=== PATIENT | female | born 1995 | race African-American/Black ===

== ENCOUNTER 2021-08-03 10:40 | Emergency (ER) | payer OTHER ==
[2021-08-03 10:53] VITALS: BMI 59.0
[2021-08-03] MEDS ORDERED: SODIUM CHLORIDE 0.9% 500 ML INFUS.BAG IV ONE (12:32)
[2021-08-03 12:55] LABS: VENOUS BASE EXCESS -2.7 mmol/L (-2-2); VENOUS O2 SATURATION 98.4 % (70-80); VENOUS PCO2 30.6 mmHg (38-52); VENOUS PH 7.443 (7.310-7.410)
[2021-08-03 12:56] LABS: BASO % 0.5 % (0-2.0); EOS % 0.7 % (0-4.5); HEMATOCRIT 32.8 % (32.4-45.2); HEMOGLOBIN 10.9 GM/dL (10.7-15.3); LYMPH % 14.2 % (8-40); MCH 26.3 pg (25.7-33.7); MCHC 33.3 g/dl (32.0-36.0); MEAN CELL VOLUME 78.8 fl (80-96); MEAN PLT VOLUME 8.7 fl (7.5-11.1); MONO % 7.7 % (3.8-10.2); NEUT % 76.9 % (42.8-82.8); PLATELET COUNT 278 10^3/uL (134-434); RBC 4.16 M/mm3 (3.60-5.2); RDW 14.5 % (11.6-15.6); WHITE BLOOD COUNT 12.8 K/mm3 (4.0-10.0)
[2021-08-03 13:51] LABS: ALBUMIN 2.3 g/dl (3.4-5.0); BILIRUBIN,TOTAL 0.2 mg/dL (0.2-1); BLOOD UREA NITROGEN 4.9 mg/dL (7-18); CREATININE 0.5 mg/dL (0.55-1.3)
[2021-08-03 14:48] LABS: PH,URINE 5.5 (5.0-8.0); URINE APPEARANCE CLEAR; URINE BILIRUBIN NEGATIVE (NEGATIVE); URINE COLOR YELLOW; URINE GLUCOSE (UA) 3+ (NEGATIVE); URINE KETONE 1+ (NEGATIVE); URINE LEUK ESTERASE NEGATIVE (NEGATIVE); URINE NITRITE NEGATIVE (NEGATIVE); URINE PROTEIN NEGATIVE (NEGATIVE); URINE UROBILINOGEN 0.2 mg/dL (0.2-1.0)
[2021-08-03] MEDS ORDERED: glyBURIDE 5 MG TABLET PO ONE (16:27)
[2021-08-03 18:55] VITALS: BP 113/72; PULSE 118; TEMP 98.1
== END 2021-08-03 17:55 | disposition home or self-care (01) ==
LOC: JER 10:40
DX: O24.419 Gestational diabetes mellitus in pregnancy, unspecified control (principal); Z3A.33 33 weeks gestation of pregnancy
CPT/HCPCS: 36415; 80053; 81003; 82010; 82803; 82962; 83036; 84443; 85025; 87086; 93005; 93010; 99285-25; C9803; U0003; U0005

== ENCOUNTER 2021-09-05 07:30 | Inpatient (IN) | payer OTHER ==
[2021-09-05] MEDS ORDERED: CITRIC ACID/SODIUM CITRATE 30 ML UNIT-DOSE CUP PO ONE (08:18)
[2021-09-05] MEDS ORDERED: ELECTROLYTE-148 SOLN 500 ML IV ONE (08:18)
[2021-09-05] MEDS ORDERED: ELECTROLYTE-148 SOLN 1,000 ML IV SCH (08:30)
[2021-09-05 08:36] LABS: BASO % 0.2 % (0-2.0); EOS % 1.1 % (0-4.5); HEMATOCRIT 34.2 % (32.4-45.2); HEMOGLOBIN 11.4 GM/dL (10.7-15.3); LYMPH % 25.8 % (8-40); MCH 25.4 pg (25.7-33.7); MCHC 33.2 g/dl (32.0-36.0); MEAN CELL VOLUME 76.5 fl (80-96); MEAN PLT VOLUME 9.3 fl (7.5-11.1); MONO % 9.6 % (3.8-10.2); NEUT % 63.3 % (42.8-82.8); PLATELET COUNT 233 10^3/uL (134-434); RBC 4.47 M/mm3 (3.60-5.2); WHITE BLOOD COUNT 9.4 K/mm3 (4.0-10.0)
[2021-09-05 08:44] LABS: INR 0.92 (0.83-1.09); PROTHROMBIN TIME (PATIENT) 10.8 SEC (9.7-13.0)
[2021-09-05 08:47] LABS: ACTIVATED PTT 28.7 SECONDS (25.2-36.5)
[2021-09-05 08:54] VITALS: BMI 60.5
[2021-09-05 08:56] LABS: BLOOD UREA NITROGEN 7.3 mg/dL (7-18); CALCIUM 8.4 mg/dL (8.5-10.1)
[2021-09-05 09:00] LABS: CREATININE 0.7 mg/dL (0.55-1.3)
[2021-09-05] MEDS ORDERED: morphine SULFATE/PF 1 MG/2 ML (2cc Syringe - QUVA) ONE (10:18)
[2021-09-05] MEDS ORDERED: OXYTOCIN 10 UNITS/ML VIAL ONE (10:44)
[2021-09-05] MEDS ORDERED: ceFAZolin SODIUM 1 GM VIAL ONE (10:44)
[2021-09-05] MEDS ORDERED: ONDANSETRON 4 MG/2 ML VIAL ONE (10:44)
[2021-09-05] MEDS ORDERED: ONDANSETRON 4 MG/2 ML VIAL IVPUSH PRN (11:45)
[2021-09-05] MEDS ORDERED: LACTATED RINGERS SOLUTION 1,000 ML IV SCH (11:45)
[2021-09-05] MEDS ORDERED: ACETAMINOPHEN 1000 MG/100 ML BAG IVPB PRN ×2 (11:46→12:06)
[2021-09-05] MEDS ORDERED: SENNOSIDES/DOCUSATE COMBO (SENNA PLUS) TABLET (UD) PO PRN (12:06)
[2021-09-05] MEDS ORDERED: ONDANSETRON 4 MG/2 ML VIAL IVPB PRN (12:06)
[2021-09-05] MEDS ORDERED: IBUPROFEN 800 MG/8 ML IJ IVPB PRN (12:06)
[2021-09-05] MEDS ORDERED: OXYTOCIN 20 UNITS in 0.9% NS 20 UNIT/1,000 ML INFUS.BAG IV SCH (12:15)
[2021-09-05] MEDS ORDERED: OXYTOCIN 20 UNITS in 0.9% NS 20 UNIT/1,000 ML INFUS.BAG IV ONE (13:07)
[2021-09-05] MEDS ORDERED: IBUPROFEN 800 MG/8 ML IJ IVPB ONE (13:07)
[2021-09-06] MEDS: ALBUTEROL SO4 0.083% IH SOL 2.5 MG/3 ML VIAL.NEB. NEB PRN ×2 (00:06→18:00)
[2021-09-06] MEDS: SIMETHICONE 80 MG TAB.CHEW (FP) PO PRN ×3 (07:22→21:52)
[2021-09-06] MEDS: oxyCODONE HCL 5 MG TABLET PO PRN ×2 (07:22→14:25)
[2021-09-06] MEDS ORDERED: FLU VACC QS2021-22(6MOS UP)/PF 60 MCG/0.5 ML SYRINGE IM ONE (10:00)
[2021-09-06] MEDS: ENOXAPARIN NA (PORCINE) 40 MG/0.4 ML DISP.SYRIN SQ SCH (10:21)
[2021-09-06 10:37] LABS: BASO % 0.2 % (0-2.0); EOS % 0.1 % (0-4.5); HEMOGLOBIN 10.3 GM/dL (10.7-15.3); LYMPH % 12.7 % (8-40); MCH 24.8 pg (25.7-33.7); MCHC 32.1 g/dl (32.0-36.0); MEAN CELL VOLUME 77.2 fl (80-96); MEAN PLT VOLUME 9.9 fl (7.5-11.1); MONO % 8.4 % (3.8-10.2); NEUT % 78.6 % (42.8-82.8); PLATELET COUNT 216 10^3/uL (134-434); RBC 4.14 M/mm3 (3.60-5.2); RDW 14.9 % (11.6-15.6); WHITE BLOOD COUNT 12.3 K/mm3 (4.0-10.0)
[2021-09-06] MEDS ORDERED: BISACODYL 10 MG SUPP.RECT RC PRN (12:06)
[2021-09-06] MEDS: ACETAMINOPHEN 325 MG TABLET (FP) PO PRN ×2 (17:55→21:52)
[2021-09-07] MEDS: SIMETHICONE 80 MG TAB.CHEW (FP) PO PRN ×2 (01:32→12:56)
[2021-09-07] MEDS: IBUPROFEN 600 MG TABLET (FP) PO PRN ×4 (01:32→17:07)
[2021-09-07] MEDS: ACETAMINOPHEN 325 MG TABLET (FP) PO PRN (01:33)
[2021-09-07] MEDS: ENOXAPARIN NA (PORCINE) 40 MG/0.4 ML DISP.SYRIN SQ SCH (09:37)
[2021-09-07 11:28] VITALS: BP 128/84; PULSE 99; TEMP 98.3
[2021-09-07] MEDS ORDERED: CEPHALEXIN MONOHYDRATE 500 MG CAPSULE (UD) PO SCH (11:33)
[2021-09-07] MEDS: ALBUTEROL SO4 0.083% IH SOL 2.5 MG/3 ML VIAL.NEB. NEB PRN (18:19)
[2021-09-08 19:38] LABS: HIV INTERPRETATION NEGATIVE (NEGATIVE)
== END 2021-09-07 19:20 | disposition home or self-care (01) | DRG 540 ==
LOC: JLDR 07:30 → J3W 14:25
PROVIDERS: ADMIT Specialist; ATTEND Specialist
PROC: 10D00Z1 Extraction of Products of Conception, Low, Open Approach (ICD-10-PCS; principal; 2021-09-06)
DX: O36.63X0 Maternal care for excessive fetal growth, third trimester, not applicable or unspecified (principal); O99.214 Obesity complicating childbirth; E66.01 Morbid (severe) obesity due to excess calories; Z3A.37 37 weeks gestation of pregnancy; Z37.0 Single live birth
CPT/HCPCS: 36415; 80048; 85025; 85610; 85730; 86780; 86850; 86900; 86901; 87389; 88307-TC; 90686; 94640; C9803; G0008; J0131; U0003; U0005

== ENCOUNTER 2022-07-20 14:29 | Emergency (ER) | payer OTHER ==
[2022-07-20 15:01] VITALS: BP 113/65; PULSE 89; RESP 18; TEMP 98; BMI 56.7
[2022-07-20] MEDS ORDERED: predniSONE 20 MG TABLET (UD) PO ONE (15:30)
[2022-07-20] MEDS ORDERED: predniSONE 20 MG TABLET (UD) ONE (15:38)
== END 2022-07-20 16:11 | disposition home or self-care (01) ==
LOC: JER 14:29
DX: U07.1 COVID-19 (principal)
CPT/HCPCS: 0241U-QW; 99283-25

== ENCOUNTER 2022-09-24 12:45 | Inpatient (IN) | payer OTHER ==
[2022-09-24] MEDS ORDERED: SODIUM CHLORIDE 1,000 ML IV STA ×2 (13:47→16:49)
[2022-09-24] MEDS ORDERED: ACETAMINOPHEN 1000 MG/100 ML BAG IVPB ONE (13:47)
[2022-09-24] MEDS ORDERED: FAMOTIDINE 20 MG/50 ML IVPB 20 MG/50 ML MG IVPB ONE ×2 (13:47→13:56)
[2022-09-24] MEDS ORDERED: ONDANSETRON 4 MG/2 ML VIAL IVPUSH ONE (13:47)
[2022-09-24] MEDS ORDERED: ACETAMINOPHEN INJECTION 100 ML IVPB ONE (13:55)
[2022-09-24] MEDS ORDERED: ONDANSETRON 4 MG/2 ML VIAL ONE (13:55)
[2022-09-24 14:27] LABS: EPI CELLS 24 /uL (0-25.1); HCG,QUALITATIVE URINE Negative; HYALINE CASTS 0 /uL (0-3.1); PH,URINE 7.5 (5.0-8.0); URINE APPEARANCE CLEAR; URINE BACTERIA 174 /uL (0-1359); URINE BILIRUBIN NEGATIVE (NEGATIVE); URINE COLOR DK YELLOW; URINE GLUCOSE (UA) NEGATIVE (NEGATIVE); URINE KETONE NEGATIVE (NEGATIVE); URINE LEUK ESTERASE 1+ (NEGATIVE); URINE NITRITE NEGATIVE (NEGATIVE); URINE PROTEIN NEGATIVE (NEGATIVE); URINE RBC 15 /uL (0-23.9); URINE WBC 46 /uL (0-25.8)
[2022-09-24 14:55] LABS: HEMATOCRIT 39.9 % (32.4-45.2); HEMOGLOBIN 12.5 GM/dL (10.7-15.3); MCH 24.3 pg (25.7-33.7); MCHC 31.4 g/dl (32.0-36.0); MEAN CELL VOLUME 77.4 fl (80-96); MEAN PLT VOLUME 8.6 fl (7.5-11.1); PLATELET COUNT 420 10^3/uL (134-434); RBC 5.15 M/mm3 (3.60-5.2); RDW 16.7 % (11.6-15.6); WHITE BLOOD COUNT 21.7 K/mm3 (4.0-10.0)
[2022-09-24 15:14] LABS: ANISOCYTOSIS 2+; MACROCYTOSIS 0
[2022-09-24 15:31] LABS: CALCIUM 9.3 mg/dL (8.5-10.1)
[2022-09-24 15:32] LABS: ALBUMIN 3.9 g/dl (3.4-5.0); BLOOD UREA NITROGEN 7.7 mg/dL (7-18)
[2022-09-24 15:34] LABS: CREATININE 0.7 mg/dL (0.55-1.3)
[2022-09-24 15:36] LABS: TOT PROT 7.8 g/dl (6.4-8.2)
[2022-09-24 15:39] LABS: BILIRUBIN,TOTAL 0.8 mg/dL (0.2-1)
[2022-09-24] MEDS ORDERED: PIPERACILLIN/TAZOB 3.375 GM 3.375 GM in DEXTROSE 5%-WATER - 50 ML IVPB ONE (16:40)
[2022-09-24] MEDS ORDERED: morphine CARPU-JECT 4 MG/1 ML DISP.SYRIN IVPUSH ONE (16:49)
[2022-09-24] MEDS ORDERED: morphine SULFATE 4 MG/ML VIAL ONE (16:53)
[2022-09-24] MEDS ORDERED: PIPERACILLIN/TAZOB 3.375 GM 3.375 GM/50 ML BAG IVPB ONE (16:53)
[2022-09-24] MEDS ORDERED: ONDANSETRON 4 MG/2 ML VIAL IVPUSH PRN (20:58)
[2022-09-24 21:11] LABS: INR 1.23 (0.83-1.09); PROTHROMBIN TIME (PATIENT) 14.2 SEC (9.7-13.0)
[2022-09-24 21:14] LABS: ACTIVATED PTT 27.9 SECONDS (25.2-36.5)
[2022-09-24] MEDS: INSULIN SLIDING SCALE (NOVOLOG) 1 VIAL SQ SCH (22:29)
[2022-09-24] MEDS: LACTATED RINGERS SOLUTION 1,000 ML/1,000 ML INFUS.BAG IV SCH (23:19)
[2022-09-24] MEDS: morphine SULFATE 4 MG/ML VIAL IVPUSH PRN (23:21)
[2022-09-25 00:09] VITALS: BMI 55.4
[2022-09-25] MEDS: LACTATED RINGERS SOLUTION 1,000 ML/1,000 ML INFUS.BAG IV SCH ×3 (03:57→17:12)
[2022-09-25] MEDS: morphine SULFATE 4 MG/ML VIAL IVPUSH PRN ×3 (04:35→21:19)
[2022-09-25] MEDS: INSULIN SLIDING SCALE (NOVOLOG) 1 VIAL SQ SCH ×4 (06:04→23:19)
[2022-09-25] MEDS ORDERED: PIPERACILLIN/TAZOB 4.5 GM 4.5 GM in DEXTROSE 5%-WATER 100 ML IVPB ONE (06:13)
[2022-09-25] MEDS ORDERED: TRIMETHOBENZAMIDE HCL 200MG/2ML INJ IM PRN (06:21)
[2022-09-25] MEDS ORDERED: AZITHROMYCIN IVPB 500 MG in DEXTROSE 5%-WATER - 250 ML IVPB ONE (07:30)
[2022-09-25 08:47] LABS: BASO % 0.2 % (0-2.0); EOS % 0.5 % (0-4.5); HEMATOCRIT 33.6 % (32.4-45.2); HEMOGLOBIN 10.7 GM/dL (10.7-15.3); MCH 24.5 pg (25.7-33.7); MCHC 31.7 g/dl (32.0-36.0); MEAN CELL VOLUME 77.1 fl (80-96); MEAN PLT VOLUME 8.8 fl (7.5-11.1); MONO % 6.4 % (3.8-10.2); NEUT % 76.9 % (42.8-82.8); PLATELET COUNT 328 10^3/uL (134-434); RBC 4.35 M/mm3 (3.60-5.2); RDW 16.9 % (11.6-15.6); WHITE BLOOD COUNT 13.5 K/mm3 (4.0-10.0)
[2022-09-25] MEDS ORDERED: ONDANSETRON 4 MG/2 ML VIAL IVPUSH PRN (09:15)
[2022-09-25 09:21] LABS: BLOOD UREA NITROGEN 6.7 mg/dL (7-18); CALCIUM 8.5 mg/dL (8.5-10.1); MAGNESIUM 2.1 mg/dL (1.8-2.4)
[2022-09-25 09:25] LABS: CREATININE 0.6 mg/dL (0.55-1.3); PHOSPHOROUS 3.5 mg/dL (2.5-4.9)
[2022-09-25 09:27] LABS: BILIRUBIN,TOTAL 0.7 mg/dL (0.2-1)
[2022-09-25] MEDS ORDERED: FAMOTIDINE 20 MG/50 ML IVPB 20 MG/50 ML MG IVPB SCH (10:00)
[2022-09-25] MEDS ORDERED: ENOXAPARIN NA (PORCINE) 40 MG/0.4 ML DISP.SYRIN SQ SCH (10:00)
[2022-09-25] MEDS ORDERED: AZITHROMYCIN IVPB 500 MG in DEXTROSE 5%-WATER - 250 ML IVPB SCH (10:00)
[2022-09-25] MEDS ORDERED: PIPERACILLIN/TAZOB 4.5 GM 4.5 GM in DEXTROSE 5%-WATER 100 ML IVPB SCH (15:00)
[2022-09-25] MEDS: PIPERACILLIN/TAZOB 3.375 GM 3.375 GM in DEXTROSE 5%-WATER - 50 ML IVPB SCH (17:08)
[2022-09-25] MEDS ORDERED: DEXTROSE 5%-NORMAL SALINE 1,000 ML IV SCH (18:00)
[2022-09-25] MEDS ORDERED: MAG HYDROX/AL HYDROX/SIMETH 30 ML UNIT-DOSE CUP PO ONE (18:00)
[2022-09-26] MEDS: morphine SULFATE 4 MG/ML VIAL IVPUSH PRN (01:38)
[2022-09-26] MEDS: PIPERACILLIN/TAZOB 3.375 GM 3.375 GM in DEXTROSE 5%-WATER - 50 ML IVPB SCH ×3 (01:40→18:14)
[2022-09-26] MEDS: INSULIN SLIDING SCALE (NOVOLOG) 1 VIAL SQ SCH ×4 (07:29→22:29)
[2022-09-26] MEDS ORDERED: PROPOFOL 40 ML ONE (08:22)
[2022-09-26] MEDS ORDERED: MIDAZOLAM HCL 2 MG/2 ML SINGLE DOSE VIAL ONE (08:23)
[2022-09-26] MEDS ORDERED: SUCCINYLCHOLINE CHLORIDE 200 MG/10 ML SYRINGE ONE (08:23)
[2022-09-26] MEDS ORDERED: ROCURONIUM BROMIDE 50 MG/5 ML SYRINGE ONE ×2 (08:23→10:49)
[2022-09-26] MEDS ORDERED: PROPOFOL 20 ML ONE (08:38)
[2022-09-26 09:29] LABS: BASO % 0.4 % (0-2.0); EOS % 2.6 % (0-4.5); HEMATOCRIT 34.9 % (32.4-45.2); HEMOGLOBIN 10.9 GM/dL (10.7-15.3); LYMPH % 25.5 % (8-40); MCH 24.3 pg (25.7-33.7); MCHC 31.1 g/dl (32.0-36.0); MEAN CELL VOLUME 78.3 fl (80-96); MEAN PLT VOLUME 8.8 fl (7.5-11.1); MONO % 8.8 % (3.8-10.2); NEUT % 62.7 % (42.8-82.8); PLATELET COUNT 369 10^3/uL (134-434); RBC 4.46 M/mm3 (3.60-5.2); RDW 17.2 % (11.6-15.6); WHITE BLOOD COUNT 12.2 K/mm3 (4.0-10.0)
[2022-09-26] MEDS ORDERED: BUPIVACAINE HCL/PF 0.5% (5MG/ML) 10 ML VIAL ONE ×2 (09:30→10:29)
[2022-09-26 09:54] LABS: CALCIUM 8.8 mg/dL (8.5-10.1)
[2022-09-26 09:56] LABS: ALBUMIN 3.3 g/dl (3.4-5.0); BLOOD UREA NITROGEN 5.2 mg/dL (7-18); MAGNESIUM 2.3 mg/dL (1.8-2.4)
[2022-09-26 09:57] LABS: CREATININE 0.7 mg/dL (0.55-1.3)
[2022-09-26 09:59] LABS: BILIRUBIN,TOTAL 0.3 mg/dL (0.2-1); TOT PROT 6.8 g/dl (6.4-8.2)
[2022-09-26] MEDS ORDERED: AZITHROMYCIN IVPB 500 MG in DEXTROSE 5%-WATER - 250 ML IVPB SCH (10:00)
[2022-09-26] MEDS ORDERED: BUPIVACAINE LIPOSOME/PF (EXPAREL) 266 MG/20 ML VIAL ONE (10:29)
[2022-09-26] MEDS ORDERED: PIPERACILLIN/TAZOBACTAM 3.375 GM VIAL IVPB ONE ×2 (10:30)
[2022-09-26] MEDS ORDERED: DEXAMETHASONE SOD PHOSPHATE 4 MG/1 ML VIAL ONE (10:53)
[2022-09-26] MEDS ORDERED: ONDANSETRON 4 MG/2 ML VIAL ONE (10:53)
[2022-09-26] MEDS ORDERED: BUPIVACAINE HCL/PF 0.5% (5MG/ML) 10 ML VIAL NR ONE (10:54)
[2022-09-26] MEDS ORDERED: BUPIVACAINE LIPOSOME/PF (EXPAREL) 266 MG/20 ML VIAL NR ONE (10:54)
[2022-09-26] MEDS ORDERED: SUGAMMADEX SODIUM 200 MG/2 ML VIAL ONE (11:24)
[2022-09-26] MEDS ORDERED: ONDANSETRON 4 MG/2 ML VIAL IVPUSH PRN (12:13)
[2022-09-26] MEDS ORDERED: HYDROmorphone HCl 2 MG/ML VIAL IVPUSH PRN ×2 (12:14→17:42)
[2022-09-26] MEDS ORDERED: LACTATED RINGERS SOLUTION 1,000 ML IV SCH (12:15)
[2022-09-26] MEDS: ACETAMINOPHEN 1000 MG/100 ML BAG IVPB PRN ×2 (14:54→22:27)
[2022-09-26] MEDS ORDERED: PIPERACILLIN/TAZOB 4.5 GM 4.5 GM in DEXTROSE 5%-WATER 100 ML IVPB SCH (15:00)
[2022-09-26] MEDS ORDERED: ACETAMINOPHEN 1000 MG/100 ML BAG IVPB PRN (17:42)
[2022-09-26] MEDS: oxyCODONE HCL 5 MG TABLET PO PRN ×2 (18:42→23:05)
[2022-09-26] MEDS ORDERED: INSULIN (NOVOLOG) ASPART 100 UNITS/ML 10ML VIAL ONE (21:33)
[2022-09-26] MEDS: LACTATED RINGERS SOLUTION 1,000 ML IV SCH (22:28)
[2022-09-26] MEDS: DEXTROSE 5%-NORMAL SALINE 1,000 ML IV SCH (22:29)
[2022-09-27] MEDS: PIPERACILLIN/TAZOB 3.375 GM 3.375 GM in DEXTROSE 5%-WATER - 50 ML IVPB SCH ×2 (03:00→10:03)
[2022-09-27] MEDS: oxyCODONE HCL 5 MG TABLET PO PRN ×5 (03:01→22:11)
[2022-09-27] MEDS: INSULIN SLIDING SCALE (NOVOLOG) 1 VIAL SQ SCH ×4 (08:10→22:12)
[2022-09-27] MEDS: ENOXAPARIN NA (PORCINE) 40 MG/0.4 ML DISP.SYRIN SQ SCH (10:03)
[2022-09-27] MEDS: DEXTROSE 5%-NORMAL SALINE 1,000 ML IV SCH (16:00)
[2022-09-27] MEDS: ONDANSETRON 4 MG/2 ML VIAL IVPUSH PRN (22:11)
[2022-09-28] MEDS: LACTATED RINGERS SOLUTION 1,000 ML IV SCH (02:08)
[2022-09-28] MEDS: ONDANSETRON 4 MG/2 ML VIAL IVPUSH PRN (04:47)
[2022-09-28] MEDS: oxyCODONE HCL 5 MG TABLET PO PRN ×2 (04:47→08:14)
[2022-09-28] MEDS: INSULIN SLIDING SCALE (NOVOLOG) 1 VIAL SQ SCH ×2 (06:18→11:22)
[2022-09-28] MEDS: ENOXAPARIN NA (PORCINE) 40 MG/0.4 ML DISP.SYRIN SQ SCH (09:23)
[2022-09-28 09:24] LABS: BASO % 0.7 % (0-2.0); EOS % 1.6 % (0-4.5); HEMATOCRIT 33.5 % (32.4-45.2); HEMOGLOBIN 10.6 GM/dL (10.7-15.3); LYMPH % 37.2 % (8-40); MCH 24.6 pg (25.7-33.7); MCHC 31.6 g/dl (32.0-36.0); MEAN PLT VOLUME 7.9 fl (7.5-11.1); MONO % 7.5 % (3.8-10.2); PLATELET COUNT 400 10^3/uL (134-434); RDW 17.1 % (11.6-15.6); WHITE BLOOD COUNT 9.5 K/mm3 (4.0-10.0)
[2022-09-28 09:57] LABS: CALCIUM 8.9 mg/dL (8.5-10.1)
[2022-09-28 10:00] LABS: BLOOD UREA NITROGEN 8.2 mg/dL (7-18)
[2022-09-28 10:01] LABS: CREATININE 0.7 mg/dL (0.55-1.3)
[2022-09-28 10:30] VITALS: PULSE 72; RESP 20
[2022-09-28] MEDS ORDERED: ONDANSETRON 8 MG TABLET (FP) PO PRN (11:55)
[2022-09-28] MEDS ORDERED: ONDANSETRON 4 MG TABLET PO PRN (12:00)
[2022-09-28] MEDS ORDERED: PANTOPRAZOLE 40 MG TABLET PO SCH (12:00)
[2022-09-28] MEDS: DEXTROSE 5%-NORMAL SALINE 1,000 ML IV SCH (13:23)
[2022-09-28 15:27] VITALS: BP 117/65; TEMP 98.5
[2022-09-28] MEDS ORDERED: AMOX TR/POT CLAV 875MG/125MG TABLETS (FP) PO SCH (17:30)
== END 2022-09-28 15:55 | disposition home or self-care (01) | DRG 417 ==
LOC: JER 12:45 → JERBED 20:23 → J8W 21:56
PROVIDERS: ADMIT Internal Medicine; ATTEND Internal Medicine
PROC: 0FT44ZZ Resection of Gallbladder, Percutaneous Endoscopic Approach (ICD-10-PCS; principal; 2022-09-26 09:30)
DX: K80.00 Calculus of gallbladder with acute cholecystitis without obstruction (principal); K85.10 Biliary acute pancreatitis without necrosis or infection; Z68.43 Body mass index [BMI] 50.0-59.9, adult; J45.909 Unspecified asthma, uncomplicated; E66.01 Morbid (severe) obesity due to excess calories
CPT/HCPCS: 36415; 71046-TC-FY; 74177-TC; 76705-TC; 80048; 80053; 81003; 82962; 83036; 83615; 83690; 83735; 84100; 84478; 84703; 85025; 85610; 85730; 86140; 86850; 86900; 86901; 87086; 88304-TC; 93005; 93010; 94010; 94760; 99285-25; C9803-CS; Q9967; U0003; U0005

== ENCOUNTER 2022-10-25 14:09 | Emergency (ER) | payer OTHER ==
[2022-10-25 14:20] VITALS: BP 119/82; PULSE 87; RESP 18; TEMP 97.8; BMI 56.3
[2022-10-25 16:21] LABS: THROAT:GRP A STREP NOT DETECTED (NOTDETECTED)
== END 2022-10-25 16:50 | disposition home or self-care (01) ==
LOC: JERFT 14:09 → JER 14:09 → JERFT 16:50
DX: R05.1 Acute cough (principal)
CPT/HCPCS: 0241U-QW; 71046-TC-FY; 87651; 99284-25

== ENCOUNTER 2023-03-16 14:00 | Emergency (ER) | payer OTHER ==
[2023-03-16 14:09] VITALS: BP 128/78; PULSE 115; RESP 18; TEMP 98.3; BMI 38.9
[2023-03-16] MEDS ORDERED: METOCLOPRAMIDE HCL INJECTION 10 MG/2 ML VIAL IVPB ONE (14:50)
[2023-03-16] MEDS ORDERED: ACETAMINOPHEN 1000 MG/100 ML BAG IVPB ONE (14:51)
[2023-03-16] MEDS ORDERED: SODIUM CHLORIDE 0.9% 500 ML INFUS.BAG IV ONE (14:52)
[2023-03-16 15:12] LABS: BASO % 0.7 % (0-2.0); EOS % 4.1 % (0-4.5); HEMATOCRIT 36.4 % (32.4-45.2); HEMOGLOBIN 11.4 GM/dL (10.7-15.3); LYMPH % 16.4 % (8-40); MCH 24.6 pg (25.7-33.7); MCHC 31.3 g/dl (32.0-36.0); MEAN CELL VOLUME 78.4 fl (80-96); MEAN PLT VOLUME 9.2 fl (7.5-11.1); MONO % 8.8 % (3.8-10.2); PLATELET COUNT 371 10^3/uL (134-434); RBC 4.65 M/mm3 (3.60-5.2); RDW 15.9 % (11.6-15.6); WHITE BLOOD COUNT 10.8 K/mm3 (4.0-10.0)
[2023-03-16 15:31] LABS: CHLORIDE 109 mmol/L (98-107); SODIUM 142 mmol/L (136-145)
[2023-03-16 15:32] LABS: CALCIUM 9.1 mg/dL (8.5-10.1)
[2023-03-16 15:33] LABS: ALBUMIN 3.3 g/dl (3.4-5.0); ANION GAP 6 MMOL/L (8-16); BLOOD UREA NITROGEN 8.8 mg/dL (7-18); CO2 27 mmol/L (21-32); GLUCOSE,RANDOM 93 mg/dL (74-106)
[2023-03-16 15:36] LABS: SGOT/AST 6 U/L (15-37); SGPT/ALT 16 U/L (13-61)
[2023-03-16 15:37] LABS: CREATININE 0.8 mg/dL (0.55-1.3)
[2023-03-16 15:38] LABS: BILIRUBIN,TOTAL 0.2 mg/dL (0.2-1); TOT PROT 6.9 g/dl (6.4-8.2)
[2023-03-16 15:39] LABS: ALK PHOS 86 U/L (45-117)
[2023-03-16] MEDS ORDERED: PSEUDOEPHEDRINE HCL 60 MG TABLET PO SCH (15:45)
[2023-03-16] MEDS ORDERED: ACETAMINOPHEN INJECTION 100 ML IVPB ONE (16:01)
[2023-03-16] MEDS ORDERED: METOCLOPRAMIDE HCL INJECTION 10 MG/2 ML VIAL ONE (16:01)
[2023-03-16] MEDS ORDERED: PSEUDOEPHEDRINE HCL 60 MG TABLET ONE (16:01)
[2023-03-16] MEDS ORDERED: ALBUTEROL SO4 0.083% IH SOL 2.5 MG/3 ML VIAL.NEB. NEB ONE ×2 (16:45→16:49)
== END 2023-03-16 18:16 | disposition home or self-care (01) ==
LOC: JER 14:00
PROC: 3E033NZ Introduction of Analgesics, Hypnotics, Sedatives into Peripheral Vein, Percutaneous Approach (ICD-10-PCS; principal; 2023-03-16)
PROC: 3E033GC Introduction of Other Therapeutic Substance into Peripheral Vein, Percutaneous Approach (ICD-10-PCS; 2023-03-16)
PROC: 3E033GC Introduction of Other Therapeutic Substance into Peripheral Vein, Percutaneous Approach (ICD-10-PCS; 2023-03-16)
PROC: 3E0F7GC Introduction of Other Therapeutic Substance into Respiratory Tract, Via Natural or Artificial Opening (ICD-10-PCS; 2023-03-16)
DX: R51.9 Headache, unspecified (principal); H54.7 Unspecified visual loss; R11.0 Nausea; R09.89 Other specified symptoms and signs involving the circulatory and respiratory systems; R42 Dizziness and giddiness; J01.90 Acute sinusitis, unspecified; R09.81 Nasal congestion; R68.83 Chills (without fever); G43.809 Other migraine, not intractable, without status migrainosus
CPT/HCPCS: 36415; 70450-TC; 80053; 82553; 84703; 85025; 93005; 93010; 99285-25

== ENCOUNTER 2023-09-10 12:33 | Emergency (ER) | payer OTHER ==
[2023-09-10 12:40] VITALS: BP 109/73; PULSE 88; RESP 18; TEMP 98.4; BMI 61.4
[2023-09-10] MEDS ORDERED: TETRACAINE 0.5% HCL 0.6ML DROPPER.BOTTLE OS ONE (13:34)
[2023-09-10] MEDS ORDERED: FLUORESCEIN NA 1 EA STRIP OS ONE (13:34)
[2023-09-10] MEDS ORDERED: TETRACAINE 0.5% OPHTH SOLN 2 ML BOTTLE ONE (13:40)
[2023-09-10] MEDS ORDERED: FLUORESCEIN NA 1 EA STRIP ONE (13:40)
== END 2023-09-10 15:05 | disposition home or self-care (01) ==
LOC: JERFT 12:33
DX: T26.12XA Burn of cornea and conjunctival sac, left eye, initial encounter (principal); H57.12 Ocular pain, left eye; H53.8 Other visual disturbances; H10.12 Acute atopic conjunctivitis, left eye; X10.2XXA Contact with fats and cooking oils, initial encounter; Y99.0 Civilian activity done for income or pay
CPT/HCPCS: 99283-25

== ENCOUNTER 2023-10-01 11:56 | Emergency (ER) | payer OTHER ==
[2023-10-01 12:08] VITALS: BP 113/79; RESP 20; TEMP 98.1; BMI 56.3
[2023-10-01] MEDS ORDERED: ACETAMINOPHEN 500 MG TABLET (FP) PO ONE (14:09)
[2023-10-01] MEDS ORDERED: predniSONE 20 MG TABLET (UD) PO ONE (14:09)
[2023-10-01] MEDS ORDERED: ACETAMINOPHEN 500 MG TABLET (FP) ONE (14:10)
[2023-10-01] MEDS ORDERED: predniSONE 20 MG TABLET (UD) ONE (14:10)
[2023-10-01 14:41] VITALS: PULSE 72
== END 2023-10-01 14:41 | disposition home or self-care (01) ==
LOC: JERFT 11:56
DX: M79.10 Myalgia, unspecified site (principal); R68.83 Chills (without fever); R05.9 Cough, unspecified; J02.9 Acute pharyngitis, unspecified; R50.9 Fever, unspecified; J06.9 Acute upper respiratory infection, unspecified; J03.90 Acute tonsillitis, unspecified; Z20.822 Contact with and (suspected) exposure to COVID-19
CPT/HCPCS: 0241U-QW; 87651; 99283-25

== ENCOUNTER 2024-09-05 08:19 | Emergency (ER) | payer OTHER ==
[2024-09-05 08:36] VITALS: BP 107/77; PULSE 74; RESP 18; TEMP 97.9; BMI 56.7
[2024-09-05] MEDS ORDERED: ACETAMINOPHEN 325 MG TABLET (FP) ONE (09:23)
[2024-09-05] MEDS ORDERED: ONDANSETRON *ODT* 4 MG TABLET ONE (09:24)
[2024-09-05] MEDS: ACETAMINOPHEN 500 MG TABLET (FP) PO ONE (09:45)
[2024-09-05] MEDS: ONDANSETRON *ODT* 4 MG TABLET SL ONE (09:45)
[2024-09-05] MEDS ORDERED: DEXAMETHASONE 4 MG TABLET (FP) ONE (11:03)
[2024-09-05] MEDS: DEXAMETHASONE 4 MG TABLET (FP) PO ONE (11:07)
== END 2024-09-05 11:34 | disposition home or self-care (01) ==
LOC: JER 08:19
DX: J02.9 Acute pharyngitis, unspecified (principal); R11.0 Nausea; Z20.822 Contact with and (suspected) exposure to COVID-19
CPT/HCPCS: 0241U-QW; 87651; 99283-25; Q0162